=== PATIENT | female | born 1975 | race Caucasian/White ===

== ENCOUNTER 2025-04-28 16:58 | Outpatient (CLI) | payer OTHER, SELFPAY ==
[2025-04-28 17:16] LABS: Hematocrit 40.1 % (35.0-49.0); Hemoglobin 13.9 g/dL (12.0-15.0); Immature Granulocyte Percent A 0.2 % (0.0-0.0); Lymphocytes Absolute Auto 1.78 K/mm3 (1.10-4.50); Mean Corpuscular HGB Conc 34.7 g/dL (32-36); Mean Corpuscular Hemoglobin 32.7 pg (27.0-31.0); Mean Corpuscular Volume 94.4 fL (78.0-102.0); Nucleated Red Blood Cells Absolute Auto 0.00 K/mm3 (0.00-0.00); Nucleated Red Blood Cells Perc 0.0 % (0-0.0); Platelet Count Result 328 K/mm3 (150-420); Red Blood Count 4.25 M/mm3 (4.20-5.40); White Blood Count 6.1 K/mm3 (4.8-10.8)
--- NOTE | 2025-04-28 17:18 | ECG_ITS ---
Test Date: 2025-04-28 17:25:37 Measurements Intervals [place] Rate: 52 P: 47 MI: 176 QRS: 39 QRSD: 86 T: 35 QT: 411 QTc: 383 Interpretive Statements SINUS BRADYCARDIA CONSIDER RIGHT VENTRICULAR CONDUCTION DELAY BORDERLINE ST-T WAVE ABNORMALITY- ANTERIOR LEADS BORDERLINE ECG No previous ECG available for comparison Electronically Signed On 04-28-2025 19:48:38 WET SANDER by Apolinar Blas D.O.
--- OUTSIDE RECORDS SUMMARY | 2025-04-28 18:22 | XMS_ITS | Clinical Summary ---
Author Organization [facility] Address [address] [place] [address] Phone Care Team Providers Care Machine Cage Maker Name Role Phone Provider, Not On File Primary Care Provider Unav zeeable Ina Gale MD Unavailable Allergies Active Allergy Reactions Criticality Noted Date Comments Penicillin G Hives,Itching,Swelling 1974 Medications aspirin EC 81 MG Tablet Delayed Response Take 81 mg by mouth daily. 4 Active Biotin 5000 MCG Capsule Take 1 Capsule by mouth daily. 4 Active Calcium Citrate 250 MG Tablet Take 250 mg by mouth. 4 Active Cobalamin Combinations (B-12) 100-5000 MCG SL Tablet 1 Tablet by Sublingual route. 4 Active docusate sodium 100 MG Capsule Take 100 mg by mouth. 4 Active Loratadine 10 MG Capsule Take 10 mg by mouth daily. 4 Active Multiple Vitamins-Minerals (Bariatric Multivitamins/Iro n) Capsule Take 1 Capsule by mouth. Iron plus c 4 Active Ferrous Sulfate (IRON PO) Take by mouth. Activ e clopidogrel (PLAVIX) 75 MG Tablet Take 75 mg by mouth daily. 4 Active Cholecalciferol (VITAMIN D-3 PO) Take 125 mcg by mouth daily. Active Active Problems No known active problems Family History Medical History Relation Name Comments Diabetes Father Relation Name Status Comments Brother Alive Father Alive Mother Alive Social History Tobacco Use Types Packs/Day Years Used Date Smoking Tobacco: Former Cigarettes Smokeless Tobacco: Never Tobacco Cessation:Counseling Given: No Alcohol Use Standard Drinks/Week Comments Never 0 (1 standard drink = 0.6 oz pur e alcohol) Comments Unknown Sex and Gender Information Value Date Recorded Sex Assigned at Not on file Legal Sex Female 6:19 PM CDT Gender Identity Not on file Sexual Orientation Not on file Last Filed Vital Signs Vital Sign Reading Time Taken Comments Blood Pressure 124/78 10/28/2024 8:10 AM CDT Pulse 72 10/28/2024 8:10 AM CDT Temperature 36.8 C (98.2 F) 10/28/2024 8:10 AM CDT Respiratory Rate - - Oxygen Saturation 97% 10/28/2024 8:10 AM CDT Inhaled Oxygen Concentration - - Weight 92.5 kg (204 lb) 10/28/2024 8:10 AM CDT Height 154.9 cm (5' 1) 10/28/2024 8:10 AM CDT Body Mass Index 38.55 10/28/2024 8:10 AM CDT Plan of Treatment Upcoming Encounters Date Type Department Care Team (Late st Contact Info) Description 05/05/2025 8:00 AM DEPENDENCY PROGRAM DIRECTOR Office Visit [facility] [address] [place] [address] Tammy Mendoza, VISCOSITY INSPECTOR, [employer] [address] [place] [address] Health Maintenance Due Date Last Done Comments Hepatitis C Virus (HCV) Screening 1975 Mammogram 1974 TdaP Immunization 1974 Pap Smear 1995 Cervical Cancer Screening (CCS) 01/26/2004 HPV/Cotest 01/26/2004 Cologuard 2019 Colonoscopy 2019 Colorectal Cancer Screening 2019 Immunochemical Fecal Occult Blood 2019 Hepatitis B Immunization (3 of 3 - 19+ 3-dose series) 11/03/2023 09/08/2023, 02/25/2022 Pneumococcal Immunization (50+ years) (1 of 1 - PCV) 01/26/2024 Zoster Immunization (1 of 2) 01/26/2024 Influenza Immunization (#1) 2025 02/03/2023 SARS-COV-2 Immunization (5 - 2024- season) 2025 03/23/2023, 03/20/2021, 08/07/2020, Additional history exists Respiratory Syncytial Virus (RSV) Immunization (Adult) (1 - 1-dose 75+ series) 2049 Human Papillomavirus (HPV) Immunization (No Doses Required) Completed Meningococcal Immunization (ACWY) Aged Out No longer eligible based on patient's age to complete this topic Rotavirus Immunization Aged Out No lo nger eligible based on patient's age to complete this topic Insurance [employer] Care Teams Machine Cage Maker Relationship Specialty Start Date End Date Provider, Not On File [place] PCP - General 11/27/23 Ina Gale MD [address] [place] [address] [address] [place] [address] Consulting Physician Oncology 08/16/24
--- OUTSIDE RECORDS SUMMARY | 2025-04-28 18:22 | XMS_ITS | Data Portability ---
Author Organization [facility], [address] [facility] ([place]) Address [address]th [place] [address] Care Team Providers Care Sweater Operator Name Role Phone YOBANY GARCÍA Primary Care Provider [phone] Assessment Encounter Date Assessment Date Assessment LastModified by Organization Details LastModified Time 07/15/2024 07/15/2024 REASONS FOR FOLLOW-UP: 1. Pituitary macroadenoma. 2. History of hyperprolactinemia. HPI: Ms. Vaishali Beal is a delightful female returning to endocrine clinic. She had transsphenoidal resection of pituitary macroadenoma November 23, 2017. This was performed for treatment of hyperprolactinemia. The patient had uterine ablation performed in June 2022. She no longer has any menstrual bleeding. Denies problems with visual gaona. MRI of the sella was repeated December 09, 2021. That study revealed stable postoperative changes with no evidence of recurrence. She denies problems with peripheral visual gaona. She feels well physically. Ms. Beal has had normal biochemical pituitary function. She feels well physically. 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 She was found to have PFO and had PFO closure performed March 12, 2024. She has no residual effects from her TIA/CVA. BMI is greater than 35. This has improved. Body weight is 5 pounds less as compared to July 2023. The patient has history of Patrice-en-Y gastric bypass. She had an enjoyable trip to see [facility] in [place] in June 2024. PHYSICAL EXAMINATION: CONST: No acute distress. Appears well. Vitals as documented. Appears much younger than stated age. EYES: PERRL. EOMI. No scleral icterus or injection. No exophthalmos or lid lag. Visual gaona full to confrontation testing. ENT: External inspection of the ears and nose are without scars, lesions, or masses. Oropharynx without lesions. NECK: No thyromegaly, thyroid bruits, or carotid bruits. No cervical or supraclavicular lymphadenopathy. RESP: Lung gaona clear to auscultation bilaterally with unlabored respiratory effort. CV: Normal S1, S2. No murmurs, rubs, or gallops appreciated. Regular rate and rhythm. GI: Abdomen: soft, nontender. Normoactive bowel sounds. Unable to assess for organomegaly given body habitus. MSK: No lower extremity edema. No clubbing or cyanosis. Normocephalic. SKIN: No rashes or lesions. PSYCH: Alert and oriented X 3. Appropriate mood and affect. NEURO: No focal neurologic deficits. Gait without abnormalities. No hand tremors. Reviewed recent diagnostic tests, lab work, and imaging. These were reviewed with the patient. ASSESSMENT: 1. 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 2. History of prolactinemia secondary to #1. 3. BMI greater than 35. 4. History of Patrice-en-Y gastric bypass surgery. 5. 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 RECOMMENDATIONS: 1. Potential benefits, risks, and adverse effects of the patient's endocrine medications were reviewed at the time of the appointment. We also reviewed appropriate timing of the patient's endocrine medications with respect to meals and other medications. The patient verbalized/indicate d understanding of all education presented. 2. Instructed on plan of care. Discussed signs and symptoms to report. Patient/caregiver aware and agreeable with plan. Return to clinic if signs/symptoms do not improve, worsen, or if new symptoms develop. The importance of achieving/maintaini ng a normal BMI was discussed. 3. Diagnostic studies as outlined in this note. Further recommendations will be based on these results as well as the patient's clinical course. 4. Return to endocrinology clinic in 1 year. 5. Ms. Beal is clinically eupituitary. 6. Fasting laboratory studies will be performed as outlined in this note. We reviewed symptoms of pituitary dysfunction today. 7. We will obtain a copy of the patient's MRI she had performed at [facility] in October 2023. 8. I asked the patient to report any symptoms of pituitary dysfunction to our office. We again reviewed those symptoms today in detail. 9. We discussed stopping biotin for 7 days prior to performing any lab studies. She verbalized understanding of all recommendations discussed at her appointment today. [email or web address] Not available 07/15/2024 17:58:22 Plan of Treatment Reminders Order Date Submit Date Provider Last Modified By Organization Details Last Modified Time Details Appointments None recorded . Lab T4, free, serum 025 07/16/19 25 [facility], [address] [place] [address], [id number], 5 08:14:08 TSH, ultra-se nsitive, serum 025 07/16/19 25 [facility], [address] [place] [address], [id number], 5 08:14:08 FSH (follicl e-stimul ating hormone) , serum 025 07/16/19 25 [facility], [address] [place] [address], [id number], 5 08:14:08 cortisol , serum or plasma 025 07/16/19 25 [facility], [address] [place] [address], [id number], 5 08:14:08 acth, plasma 025 07/16/19 25 [facility], [address] [place] [address], [address], 5 08:14:08 prolacti n, serum 025 07/16/19 25 [facility], [address] [place] [address], [address], 08:14:08 igf-1 (insulin -like growth factor), serum 025 07/16/19 [facility], [address] [place] [address], [id number], 08:14:08 CMP, serum or plasma 025 07/16/19 [facility], [address] [place] [address], [address], 08:14:08 Referral None recorded . Procedures None recorded . Surgeries None recorded . Imaging None recorded . Medication Orders None recorded . Patient TargetsNo targets recorded. Patient InstructionsNo instructions recorded. Reason for Referral None Reported. Results Created Date Observation Date Name Description Value Unit Range Abnormal Flag Note LastModifiedBy Organization Detail LastModifiedTime 11/18/1907/31/2017 imagi ng/di agnos tic resul t No observ ation record ed. [email or web address] Not Available 0 11/17/2024 06:54:12 11/18/1908/31/2018 imagi ng/di agnos tic resul t No observ ation record ed. [email or web address] Not Available 0 11/17/2024 06:54:21 11/18/19 25 11/09/2017 imagi ng/di agnos tic resul t No observ ation record ed. [email or web address] Not Available 0 11/17/2024 06:54:27 11/18/19 25 11/09/2017 imagi ng/di agnos tic resul t No observ ation record ed. [email or web address] Not Available 0 11/17/2024 06:54:28 11/18/19 25 11/09/2017 imagi ng/di agnos tic resul t No observ ation record ed. [email or web address] Not Available 0 11/17/2024 06:54:28 11/18/19 25 11/23/2017 imagi ng/di agnos tic resul t No observ ation record ed. [email or web address] Not Available 0 11/17/2024 06:54:33 07/06/12/03/2018 imagi ng/di agnos tic resul t No observ ation record ed. [email or web address] Not Available 0 11/17/2024 06:54:34 11/18/19 25 01/29/2020 imagi ng/di agnos tic resul t No observ ation record ed. [email or web address] Not Available 0 11/17/2024 06:54:41 Result Notes None recorded. Problems Name Problem SNOMED Code Status Onset Date Resolution Date Notes Provider Name and Address Organization Details Recorded Time Pituitar y macroade noma 688272737 Active 2024 dx on MRI on eval amenorrh ea: nonfunct ioning macroade noma (prolact inoma) with a pituitar y stock affect. Transsph enoidal resectio n of pituitar y macroade noma November 23, 2017. Kaylene Judge APRN, INTELLIGENCE INTERN [address], [place], [address], [facility] 5 10:58:43 Hyperpro lactinem ia 707229527 Active 2024 see Pituitar y Macroade noma. Kaylene Judge APRN, INTELLIGENCE INTERN [address] , [place], [address], [facility] 5 11:02:59 Angular cheiliti s 346220885 Completed 202407/27/2024 03/17/23 Tx Ketocona zole Kaylene Judge APRN, INTELLIGENCE INTERN [address] , [place], [address], [facility] 5 10:51:33 Rupture of rotator cuff of shoulder 066891146 Completed 202407/27/2024 F/B Dr. Katerina woods; surgical repair done . Kaylene Judge APRN, INTELLIGENCE INTERN [address] , [place], [address], [facility] 5 10:52:09 Herpes labialis 1747810 Active 2024 HSV type lesions, recurrin g in inner nose. Tx valacycl ovir prn. Kaylene Judge APRN, INTELLIGENCE INTERN [address], [place], [address], [facility] 5 10:52:38 Kidney stone 03439001 Completed 202407/27/2024 Right extracor poreal shockwav e lithotri psy 01/2012. Kaylene Judge APRN, INTELLIGENCE INTERN [address], [place], [address], [facility] 5 10:53:02 History of nutritio nal deficien cy 21965282485 104 Completed 202407/27/2024 Vit D nmL 08/2017. Tx regular supplmnt p bariatri c surgery. Kaylene Judge APRN, INTELLIGENCE INTERN [address], [facility] [place], [address], [facility] 5 10:53:24 Intestin al malabsor ption 750555039 Active 2024 iatrogen ic (post bariatri c surgery) . Kaylene Judge APRN, INTELLIGENCE INTERN [address] , [facility] [place], [address], [facility] 5 10:53:48 Iron deficien cy anemia 15304900 Active 2024 Tx regular supplmnt p bariatri c surgery. Kaylene Judge APRN, INTELLIGENCE INTERN [address] , [facility] [place], [address], [facility] 5 10:54:10 Right lateral elbow tendinop athy 07539760351 9107 Completed 202407/27/2024 s/p injxn by Ortho . Kaylene Judge APRN, INTELLIGENCE INTERN [address], [place], [address], [facility] 5 10:54:35 Cancer cervix screenin g status 928422340 Active 2024 nmL cytology w/ HPV Neg 11/2018. Repeat due 5yrs (mid 2023). Kaylene Judge APRN, INTELLIGENCE INTERN [address], [facility] [place], [address], [facility] 5 10:56:49 History of bariatri c surgical procedur e 128339382 Active 2024 Patrice-en- Y gastric bypass 09/2011. Kaylene Judge APRN, INTELLIGENCE INTERN [address] , [place], [address], [facility] 5 10:59:07 Screenin g mammogra phy Active 2024 nmL HAH Kaylene Judge APRN, INTELLIGENCE INTERN [address], [facility] [place], [address], [facility] 5 10:59:33 Abnormal uterine bleeding 30630848332 100 Active 2024 f/b gyne. S/p EMB (neg for malignan cy). Kaylene Judge APRN, INTELLIGENCE INTERN [address] , [facility] [place], [address], [facility] 5 11:01:55 Mixed anxiety and depressi ve disorder 238171191 Completed 202407/27/2024 Kaylene Judge APRN, INTELLIGENCE INTERN [address], [facility] [place], [address], [facility] 5 11:02:27 Cerebral artery occlusio n 15526597 Active 2024 Ms. Beal sustaine d an acute right parietal infarct October 14, 2023. She was found to have PFO and had PFO closure performe d March 12, 2024. She has no residual effects from her TIA/CVA. Kaylene Judge APRN, INTELLIGENCE INTERN [address] , [facility] [place], [address], [facility] 5 11:08:15 Problem Notes Documentation Provider Name and Address Organization Details Recorded Time Endocrinology Consult Note : [place] [address] [facility] [address]XJKYY, Shawnna L (id #[id number], : 1975) Date: 07/17/2024RE: Vaishali Beal, : 1975, PT ID #[id number] García MD, Vaishali Beal was seen in our office today 07/15/2024, and a copy of that evaluation is enclosed. Thank you for allowing us to participate in the care of your patient. Please contact us with any questions. Sincerely, Electronically Signed by: EDUARDO MUÑOZ M.D. Encounter Reason/Date 1yr f/u pituitary macroadenoma 07/15/2024 - 03:30PM - [facility] ([place]) Assessment/PlanREASONS FOR FOLLOW-UP:1. Pituitary macroadenoma.2. History of hyperprolactinemia. HPI:Ms. Vaishali Beal is a delightful female returning to endocrine clinic. She had transsphenoidal resection of pituitary macroadenoma November 23, 2017. This was performed for treatment of hyperprolactinemia. The patient had uterine ablation performed in June 2022. She no longer has any menstrual bleeding. Denies problems with visual gaona. MRI of the sella was repeated December 09, 2021. That study revealed stable postoperative changes with no evidence of recurrence. She denies problems with peripheral visual gaona. She feels well physically. Ms. Beal has had normal biochemical pituitary function. She feels well physically. 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 She was found to have PFO and had PFO closure performed March 12, 2024. She has no residual effects from her TIA/CVA. BMI is greater than 35. This has improved. Body weight is 5 pounds less as compared to July 2023. The patient has history of Patrice-en-Y gastric bypass. She had an enjoyable trip to see [facility] in [place] in June 2024. PHYSICAL EXAMINATION:CONST: No acute distress. Appears well. Vitals as documented. Appears much younger than stated age.EYES: PERRL. EOMI. No scleral icterus or injection. No exophthalmos or lid lag. Visual gaona full to confrontation testing.ENT: External inspection of the ears and nose are without scars, lesions, or masses. Oropharynx without lesions.NECK: No thyromegaly, thyroid bruits, or carotid bruits. No cervical or supraclavicular lymphadenopathy.RESP: Lung gaona clear to auscultation bilaterally with unlabored respiratory effort.CV: Normal S1, S2. No murmurs, rubs, or gallops appreciated. Regular rate and rhythm.GI: Abdomen: soft, nontender. Normoactive bowel sounds. Unable to assess for organomegaly given body habitus.MSK: No lower extremity edema. No clubbing or cyanosis. Normocephalic.SKIN: No rashes or lesions.PSYCH: Alert and oriented X 3. Appropriate mood and affect.NEURO: No focal neurologic deficits. Gait without abnormalities. No hand tremors. Reviewed recent diagnostic tests, lab work, and imaging. These were reviewed with the patient. ASSESSMENT:1. 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 History of prolactinemia secondary to #1.3. BMI greater than 35.4. History of Patrice-en-Y gastric bypass surgery.5. 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 RECOMMENDATIONS:1. Potential benefits, risks, and adverse effects of the patient's endocrine medications were reviewed at the time of the appointment. We also reviewed appropriate timing of the patient's endocrine medications with respect to meals and other medications. The patient verbalized/indicated understanding of all education presented. 2. Instructed on plan of care. Discussed signs and symptoms to report. Patient/caregiver aware and agreeable with plan. Return to clinic if signs/symptoms do not improve, worsen, or if new symptoms develop. The importance of achieving/maintaining a normal BMI was discussed. 3. Diagnostic studies as outlined in this note. Further recommendations will be based on these results as well as the patient's clinical course. 4. Return to endocrinology clinic in 1 year. 5. Ms. Beal is clinically eupituitary. 6. Fasting laboratory studies will be performed as outlined in this note. We reviewed symptoms of pituitary dysfunction today. 7. We will obtain a copy of the patient's MRI she had performed at [facility] in October 2023. 8. I asked the patient to report any symptoms of pituitary dysfunction to our office. We again reviewed those symptoms today in detail. 9. We discussed stopping biotin for 7 days prior to performing any lab studies. She verbalized understanding of all recommendations discussed at her appointment today.dpk 1.Pituitary rhdtncqzxlczY13.2: Benign neoplasm of pituitary gland FREE T4 ([place] ONLY) TSH ([place]) FSH ([place] [facility]) CORTISOL ([facility]) ADRENOCORTICOTROPIC HORMONE ([facility]) PROLACTIN ([place] [facility]) IGF-1; SOMATOMEDIN ([place] ONLY) CMP ([place] ONLY) 2.KenynnxagjeprhgtioV67.1: Hyperprolactinemia 3.BMI 37.0-37.9, kxpgkA64.37: Body mass index [BMI] 37.0-37.9, adult Return to Office Eduardo Muñoz M.D. for Established Patient 15.EST at [facility] [place]) on 07/17/2025 at 03:30 PM [facility] 02/27/2025 09:48:03 Procedures Surgical History Date Name Laterality Status Provider Name and Address Organization Details Recorded Time Breast reduction completed Kaylene Judge APRN, [facility] [address] [place] [address], [address], [facility] 07/27/2024 11:03:26 Patrice-en-Y gastrojejunostomy completed Kaylene Judge APRN, [facility] [address] [place] [address], [address], [facility] 07/27/2024 11:03:40 repair of musculotendinous cuff of shoulder completed Kaylene Judge APRN, [facility] [address] [place] [address], [address], [facility] 07/27/2024 11:03:58 tonsillectomy completed Kaylene Judge APRN, INTELLIGENCE INTERN [address] [place] [address], [address], [facility] 07/27/2024 11:04:11 lithotripsy completed Kaylene Judge APRN, [facility] [address] [place] [address], [address], [facility] 07/27/2024 11:04:18 procedure on pituitary gland completed Kaylene Judge, STOCK LETTERER, INTELLIGENCE INTERN [address] [place] [address], [address], [facility] 07/27/2024 11:06:28 Imaging Results None recorded. Procedure Notes None recorded. Medical Equipment None Reported. Allergies Allergen ID Allergen Name Allergen Category Reaction Reaction Severity Criticality Documentation Date Start Date Code Code System Note Provider Name and Address Organization Details Recorded Time 882243 Product containin g penicilli n (product) medicatio n hives Not available Not available 06/12/20232006 52355 8001 SNOMED React ion: Hives ; Not Available [facility] 4 21:34:32 Medications Name Sig Start Date Stop Date Status Note LastModified by Organization Details LastModified Time Lipitor 80 mg tablet Take 1 tablet every day by oral route. active Not Available Not Available No t Available Zyrtec 10 mg tablet Take 1 tablet every day by oral route. active Not Available Not Available No t Available Plavix 75 mg tablet Take 1 tablet every day by oral route. active Not Available Not Available No t Available aspirin 81 mg tablet,delay ed release Take 1 tablet every day by oral route. active Not Available Not Available No t Available calcium citrate 600mg tab PO TID active Not Available Not Available No t Available Stool Softener 100 mg tablet Take 2 tablets every day by oral route. active Not Available Not Available No t Available mecobalamin (vitamin B12) 1,000 mcg disintegrati ng tablet,subli ngual Place 1 tablet every week by sublingual route. active Not Available Not Available No t Available biotin 1,000 mcg chewable tablet Take 5 tablets every day by oral route. active Not Available Not Available No t Available Raleigh-Sequel s (iron-vit c) 200 mg (65 mg iron)-25 mg tablet,exten d rel 1 TAB PO DAILY active Not Available Not Available No t Available Bariatric Multivitamin s TAKE 1 TAB PO TID active Not Available Not Available No t Available Vitals Date Recorded Body height Body mass index (BMI) Body weight Heart rate Oxygen saturation Systolic And Diastolic Provider Name and Address Organization Details Last Updated DateTime 5 154.94 cm 37.8 kg/m2 82322.4 7 g 67 /min 96 % 116/72 mm[Hg] Yamini Macedo [facility] 16:44:10 Social History Question Answer Notes LastModified by Organizat ion Details LastModified Time Tobacco Smoking Status Former Smoker Yamini Macedo [facility], [facility] 07/15/2024 16:44:38 When Did You Quit Smoking? 2014 [email or web address] Information not available 07/15/2024 Sex: Unknown Functional Status None recorded. Mental Status None recorded. Family History Relationship Description Onset Age of this Age Resolved Age Notes LastModified by Organization Details LastModified Time Father Diabetes mellitus [email or web address] Not available 2024 11:05:46 Medical History No medical history recorded. Gynecological HistoryNo gynecological history recorded. Obstetrics History GPAL:G 0 P 0 0 0 0 Past Encounters Encounter ID Performer Location Encounter Start Date Encounter Closed Date Diagnosis/Indication Diagnosis SNOMED-CT Code Diagnosis ICD10 Code Diagnosis IMO Codes Diagnosis Note [id number] Eduardo Muñoz M.D. [facility] ([place]) [address] [place] [address] 07/15/2024 16:31:20 07/15/2024 17:05:41 Pituitary macroadenoma 467165844 D35.2 401068 Hyperprolactinemia 2004 E22.1 38973 Body mass index 30+ - obesity 009422329 Z68.37 53858779 Health Concerns Section Related Observation LastModified by Organization Detai ls LastModified Time None Recorded Concern Status LastModified by Organization Details LastModified Time None Recorded Advance Directives Directive None Recorded Payers Insurance Date Sequence Insurance Name Policy Number Policy Mckee Covered Member ID Mckee Member ID Guarantor Name 07/12/2024 1 [employer] [id number] Stephane Beal [id number] Vaishali Beal 07/12/2024 1 [employer] ([place]) [id number] Stephane Beal [id number] Vaishali Yeimi Valentevey 07/15/2024 [place] [facility] Vaishali L Rovey UNKNOWN Vaishali L Rovey 02/20/2025 1 [employer] ([facility] [place] [id number] Vaishali Beal [id number] Vaishali Beal OBGyn Episode No OBEpisode recorded.
--- OUTSIDE RECORDS SUMMARY | 2025-04-28 18:22 | XMS_ITS | Encounter Summary ---
Author Organization [facility] Address [facility] [place] [address] Care Team Providers Care Kiln Labourer Name Role Phone Swati Bailey NP Primary Care Provider [phone] Encounter Details Date Type Department Care Team (Late st Contact Info) Description 05/09/2024 Hospital Orders Only [facility] [address] [place], [place] [id number] Jaun Kitchen MD Three [facility]. [facility] [address] [place], [place] [address] Social History Tobacco Use Types Packs/Day Years Used Date Smoking Tobacco: Former Cigarettes Smokeless Tobacco: Never Comments:Quit 2003 Alcohol Use Standard Drinks/Week Comments Not Currently 0 (1 standard drink = 0.6 oz pur e alcohol) PHQ-2 Answer Date Recorded Patient Health Questionnaire-2 Score 0 11/21/2023 Comments No Sex and Gender Information Value Date Recorded Sex Assigned at Female 11/20/2023 7:57 AM CDT Legal Sex Female 10:03 PM CIVIL DESIGN TECHNICIAN Gender Identity Female 11/20/2023 7:57 AM CDT Sexual Orientation Straight 11/20/2023 7: 57 AM CDT Occupation Industry Job Start Date Job End Date [employer] Not on file Not on file Not on [place] documented as of this encounter Functional Status * Calculated C-SSRS Risk Score (Lifetime/Recent) Answer Date of Assessment Author Status No Risk Indicated 05/09/2024 6:56 AM CIVIL DESIGN TECHNICIAN Dipti Fox RN Active * [place] Suicide Severity Rating Scale (Screener/Recent Self-Report) Question Answer Date of Assessment Author Status 1. Wish to be (Past 1 Month) No 05/09/2024 6:56 AM Dipti Estevez RN Active 2. Non-Specific Active Suicidal Thoughts (Past 1 Month) No 05/09/2024 6:56 AM Dipti Estevez RN Active documented as of this encounter Plan of Treatment Upcoming Encounters Date Type Department Care Team (Late st Contact Info) Description 11/11/2025 9:30 AM CDT Office Visit [facility], [facility] [address] [place], [place] [id number] Alonso Machado MD [facility]. [facility] [address] [place] [address] documented as of this encounter Visit Diagnoses Not on filedocumented in this encounter Care Teams Kiln Labourer Relationship Specialty Start Date End Date Swati Bailey NP PCP - General Nurse Practitioner Family 10/19/23 documented as of this encounter
--- OUTSIDE RECORDS SUMMARY | 2025-04-28 18:22 | XMS_ITS | Encounter Summary ---
Author Organization [facility] Address [facility] [place] [address] Care Team Providers Care Heating And Refrigeration Inspector Name Role Phone Swati Bailey NP Primary Care Provider [phone] Encounter Details Date Type Department Care Team (Late st Contact Info) Description 12/20/2023 MyChart Message Enc [facility] - [facility] [address] [facility], [address] [place] [phone] Elvia Morris NP [address] [facility] [address] [place], [place] [id number] Sleep study Social History Tobacco Use Types Packs/Day Years Used Date Smoking Tobacco: Former Cigarettes Smokeless Tobacco: Never Alcohol Use Standard Drinks/Week Comments Not Currently 0 (1 standard drink = 0.6 oz pur e alcohol) PHQ-2 Answer Date Recorded Patient Health Questionnaire-2 Score 0 11/21/2023 Comments Unknown Sex and Gender Information Value Date Recorded Sex Assigned at Female 11/20/2023 7:57 AM CDT Legal Sex Female 10:03 PM ENGINE MAINTENANCE MECHANIC Gender Identity Female 11/20/2023 7:57 AM CDT Sexual Orientation Straight 11/20/2023 7: 57 AM CDT documented as of this encounter Plan of Treatment Upcoming Encounters Date Type Department Care Team (Late st Contact Info) Description 11/11/2025 9:30 AM CDT Office Visit [facility] THREE [facility], [place] [address] [place] [address] Alonso Machado MD Three [facility]. [facility] [address] [place] [address] documented as of this encounter Visit Diagnoses Not on filedocumented in this encounter Care Teams Heating And Refrigeration Inspector Relationship Specialty Start Date End Date Swati Bailey NP PCP - General Nurse Practitioner Family 10/19/23 documented as of this encounter
--- OUTSIDE RECORDS SUMMARY | 2025-04-28 18:22 | XMS_ITS | Clinical Summary ---
Author Organization [facility] Address [address] [place] [address] Care Team Providers Care Environmental Attorney Name Role Phone Swati Bailey NP Primary Care Provider [phone] Allergies Active Allergy Reactions Criticality Noted Date Comments Penicillin G Hives,Itching,Swelling 1975 Medications aspirin EC (ASPIRIN 81) 81 MG tablet Take 1 tablet (81 mg total) by mouth daily. Hold dos per surgeon per patient statement 4 Active Cobalamin Combinations (B-12) 100-[address] 1 tablet under the tongue once a week. Hold 7 days prior to surgery 4 Active Calcium Citrate 250 MG Tab Take 250 mg by mouth 3 (three) times daily. Hold 7 days prior to surgery 4 Active Multiple Vitamins-Minerals (BARIATRIC MULTIVITAMINS/IRO N) Cap Take 1 capsule by mouth 3 (three) times daily. Hold 7 days prior to surgery 4 Active Biotin 5000 MCG Cap Take 1 capsule by mouth daily. Hold 7 days prior to surgery 4 Active Loratadine 10 MG Cap Take 10 mg by mouth daily. 4 Active docusate sodium (COLACE) 100 MG capsule Take 1 capsule (100 mg total) by mouth 2 (two) times daily. 4 Active Ferrous Qnanbxlxa-F-Xxmrs Acid (IRON-C OR) Take 1 tablet by mouth daily. Hold 7 days prior to surgery Active Cholecalciferol (D3 5000) 125 MCG (5000 UT) Cap Hold 7 days prior to surgery 5 Active Methylcobalamin 1000 MCG SL Tab once a week. Hold 7 days prior to surgery Active vitamin D3, cholecalciferol, 125 mcg capsule Take 1 capsule (125 mcg total) by mouth daily. 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 I discussed risks and benefits of the procedure that include but are not limited to: Bleeding, infection, cerebrovascular accident and device embolization. I quoted a risk of 1% with device embolization. I did explain that if there was device embolization, there could be a need for cardiac surgery. Cryptogenic stroke Assessment & Plan (02/13/2024 6:51 AM CDT): Will discuss with neurology about utility of PFO closure. Encounters Date Type Department Care Team Description 04/07/2025 9:36 AM TRUCK SHOP MECHANIC Anesthesia Event [facility] [address] [place] [address] Adolfo Garcias MD 04/07/2025 9:30 AM TRUCK SHOP MECHANIC - 04/07/2025 10:49 AM TRUCK SHOP MECHANIC Surgery [facility] - [facility] [address] [place] [address] Jyoti Guzman MD HYSTEROSCOPY DILATATION & CURETTAGE 04/07/2025 7:37 AM TRUCK SHOP MECHANIC - 04/07/2025 11:40 AM TRUCK SHOP MECHANIC Hospital Encounter [facility] [address] [place] [address] Jyoti Guzman MD Discharge Disposition: Home or Self Care (Routine Discharge) 03/31/2025 Travel 02/19/2025 8:52 AM CDT - 02/19/2025 11:59 PM CDT Hospital Encounter [facility] [address] [place] [address] Antonino Dodd MD Discharge Disposition: Home or Self Care (Routine Discharge) 02/18/2025 5:17 PM CDT - 02/18/2025 6:55 PM CDT Emergency [facility] [address] [place] [address] Antonino Dodd MD Vaginal Bleeding (/) Discharge Disposition: Home or Self Care (Routine Discharge) 02/18/2025 Travel from Last 3 Months Immunizations Immunization Administration Dates Next Due Hepatitis B (Generic: Adult) 09/08/2023,02/26/20 Influenza Adult (Generic) 02/03/2023 Family History Medical History Relation Comments Drug Abuse Brother 2 Diabetes Father He is a borderli ne diabetic Relation Status Comments Brother 1 Alive Brother 2 Alive Father Alive Maternal Grandfather (Age 83) Maternal Grandmother (Age 24) Mother Alive Paternal Grandfather (Age 87) Paternal Grandmother (Age 93) Social History Tobacco Use Types Packs/Day Years Used Date Smoking Tobacco: Former Cigarettes Smokeless Tobacco: Never Comments:Quit 2003 Alcohol Use Standard Drinks/Week Comments Never 0 (1 standard drink = 0.6 oz pur e alcohol) PHQ-2 Answer Date Recorded Patient Health Questionnaire-2 Score 0 11/11/2024 Comments No Sex and Gender Information Value Date Recorded Sex Assigned at Female 11/20/2023 7:57 AM CDT Legal Sex Female 10:03 PM TRUCK SHOP MECHANIC Gender Identity Female 11/20/2023 7:57 AM CDT Sexual Orientation Straight 11/20/2023 7: 57 AM CDT 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 Not on file Not on [place] e Last Filed Vital Signs Vital Sign Reading Time Taken Comments Blood Pressure 128/82 04/07/2025 11:05 AM TRUCK SHOP MECHANIC Pulse 61 04/07/2025 11:10 AM TRUCK SHOP MECHANIC Temperature 36.1 C (97 F) 04/07/2025 10:32 AM TRUCK SHOP MECHANIC Respiratory Rate 18 04/07/2025 11:10 AM TRUCK SHOP MECHANIC Oxygen Saturation 93% 04/07/2025 11:10 AM TRUCK SHOP MECHANIC Inhaled Oxygen Concentration - - Weight 99 kg (218 lb 4.1 oz) 04/07/2025 8:11 AM TRUCK SHOP MECHANIC Height 155 cm (5' 1.02) 04/07/2025 8:11 AM TRUCK SHOP MECHANIC Body Mass Index 41.21 04/07/2025 8:11 AM TRUCK SHOP MECHANIC Plan of Treatment Upcoming Encounters Date Type Department Care Team (Late st Contact Info) Description 11/11/2025 9:30 AM CDT Office Visit [facility], [address], [place] [id number] Alonso Machado MD [facility]. [address] [place] [address] Health Maintenance Due Date Last Done Comments Cervical Cancer Screening Pap Smear (Age 30 to 64) Every 3 Years 1974 Colorectal Cancer Screening Colonoscopy (10 Years) 1974 Annual Physical 1977 Hepatitis C 01/26/1992 DTaP, Tdap and Td Vaccines (1 - Tdap) 1993 Cervical Cancer Screening Pap with HPV Testing (Age 30 to 64) Every 5 Years 01/26/2004 Cervical Cancer Screening with HPV 01/26/2004 Mammogram Screening 2014 Hepatitis B Vaccines (3 of 3 - 19+ 3-dose series) 11/03/2023 09/08/2023, 02/25/2022 Pneumococcal Vaccine: 50+ Years (1 of 1 - PCV) 01/26/2024 Zoster Vaccines (1 of 2) 01/26/2024 COVID-19 Vaccine (5 - season) 2025 03/23/2023, 03/20/2021, 08/07/2020, Additional history exists Influenza Adult (#1) 2025 02/03/2023 PHQ-2 (Physician Osgood) Completed 11/11/2024 Hepatitis A Vaccines Aged Out No long er eligible based on patient's age to complete this topic Meningococcal B Vaccine Aged Out No l onger eligible based on patient's age to complete this topic Meningococcal Vaccine Aged Out No milagro pritesh eligible based on patient's age to complete this topic RSV Immunizations Under 20 Months Aged Out No longer eligible based on patient's age to complete this topic Medical Devices Implanted Type Area Air Sampling And Monitoring Device Identifier Shelf Expiration Date Model / Serial / Lot [facility]-03/12 Implanted:02/13 by Marty Griffin MD (Quantity not on file) [facility] [id number] 10/12/2026 / / [id number] Explanted Type Area Air Sampling And Monitoring Device Identifier Shelf Expiration Date Model / Serial / Lot Implantable Loop [id number] Ii-05/09/2024 Implanted:Qty: 1 on 05/09/2024 by Jaun Kitchen MD Explanted:Qty: 1 on 12/13/2024 by Jaun Kitchen MD Implantable Loop Recorder [employer] CARDIAC RHYTHM AND HEART FAILURE - DIV M 08/26/2025 [id number] / [id number] / Procedures Procedure Name Priority Date/Time Associated Diagnosis Comments HYSTEROSCOPY DILATATION & CURETTAGE 04/07/2025 9:21 AM TRUCK SHOP MECHANIC ABNORMAL UTERINE BLEEDING POCT URINE (BACK OFFICE) Routine 04/07/2025 PATHOLOGY Routine 04/07/2025 12:00 AM TRUCK SHOP MECHANIC US PELVIC NON OB COMP TA+TV Routine 02/19/2025 9:59 AM CDT Dysfunctional uterine bleeding HC HCG QN STAT 02/18/2025 6:06 PM CDT HC PROTHROMBIN TIME (PT) STAT 02/18/2025 6:06 PM CDT HC COMPREHENSIVE METABOL PANEL STAT 02/18/2025 6:06 PM CDT HC CBC AUTO W/AUTO DIFF STAT 02/18/2025 6:06 PM CDT from Last 3 Months Results * POCT urine (back office) (04/07/2025) URINE HCG TEST NEGATIVE NEGATIVE [facility] Internal Control: VALID VALID [facility] URINE URINE SPECIMEN OBTAINED BY CLEAN CATCH PROCEDURE / Unknown 04/07/2025 Adolfo Garcias MD POINT OF CARE TEST ORDERABLES Final Result [facility] [address] [place] [address], [id number] * Pathology (04/07/2025 12:00 AM TRUCK SHOP MECHANIC) PATHOLOGY [facility] Department of Laboratory Medicine [address] [place] [address] , extension [phone] Pathology Report Surgical Pathology Report Name: BONY GRIFFIN Specimen #: [id number] Age: 9 1975 (Age: 50) Location: [facility] Sex: F Procedure Date: 04/07/2025 Hospital #: [id number] Date Received: 04/07/2025 Date Reported: 04/08/2025 Provider: JYOTI PARSON MD Source: A: Endometrium, biopsy B: Endometrium, polyp C: Endometrium, curettage Clinical History: Abnormal uterine bleeding. FINAL DIAGNOSIS: A. Endometrial lesion, biopsy: - Inactive appearing endometrium with patchy tubal metaplasia and glandular and stromal breakdown. - No hyperplasia or malignancy is identified. B. Endometrium, polypectomy: - Fragments of inactive appearing endometrium. - Definite histologic features of polyp are not identified. - No hyperplasia or malignancy is identified. C. Endometrium, curettage: - Disordered weakly proliferative endometrium with patchy glandular and stromal breakdown. - No hyperplasia or malignancy is identified. - Few fragments of benign cervical tissue. Gross Description: A. Received in formalin, labeled with a patient label and as endometrial lesion, are friable chauhan-red tissues that aggregate 0.3 x 0.1 x 0.1 cm. The specimen is entirely submitted in cassette A1. B. Received in formalin, labeled with a patient label and as endometrial polyp, are 2 rubbery pink-white soft tissue fragments that measure 0.1 and 0.2 cm the specimen is entirely submitted in cassette B1 C. Received in formalin, labeled with a patient label and as endometrial curettings, are multiple friable, chauhan-red to hemorrhagic tissue fragments admixed with blood and tinged mucus. The specimen aggregates 1.5 x 1.5 x 0.7 cm. The specimen is entirely submitted in cassette C1. Gross examination (when applicable), interpretation, and sign out were performed at [facility], [address] [place] [address]. Electronically Signed Out YASMEEN VICENTE MD [facility] TISSUE ENDOMETRIAL STRUCTURE / Unknown 04/07/2025 10:09 AM TRUCK SHOP MECHANIC Tissue specimen (specimen) ENDOMETRIAL STRUCTURE / Unknown 04/07/2025 10:11 AM TRUCK SHOP MECHANIC Tissue specimen (specimen) ENDOMETRIAL STRUCTURE / Unknown 04/07/2025 10:12 AM TRUCK SHOP MECHANIC Jyoti Guzman MD PATHOLOGY/CYTOLOGY ORDERABLES Final Result Performing Organization Address City/State/[facility] Co de Phone Number [facility] [address] [place] [address], [phone] * US PELVIC NON OB COMP TA+TV (02/19/2025 9:59 AM CDT) Anatomical Region Laterality Modality Pelvis Ultrasound 02/21/2025 3:49 PM CDT Impressions 02/21/2025 3:53 PM CDT IMPRESSION: 1. Abnormal but nonspecific appearance of the endometrium. Gynecologic consultation is advised. 2. Multiple left ovarian cysts, likely physiologic. 3. Nonvisualization of the right ovary without adnexal mass. Ordered By: ANTONINO DODD Interpreted By: Yang Higgins MD, 02/21/2025 3:49 PM Narrative 02/21/2025 3:53 PM [address]T [address] [place] [address] Examination: Transabdominal and transvaginal pelvic ultrasound. Exam time: 0914 hours. Clinical history: Dysfunctional bleeding. Comparison: None. Technique: Grayscale and color Doppler images including spectral analysis. Endovaginal scanning was performed to better visualize the endometrium and the adnexa. Findings: The uterus measures 11.8 cm in length. No myometrial abnormality is identified. The endometrial stripe measures up to 19 mm with some heterogeneity in its echotexture, asymmetric thickness and fluid in the cavity. This is abnormal but nonspecific. Gynecologic consultation is advised. 2.1 cm nabothian cyst is noted. The left ovary is enlarged measuring 5.9 cm in greatest dimension. This is on the basis of multiple simple appearing cysts measuring up to 4.1 cm in greatest dimension, presumably physiologic. Flow to the left ovary is documented on color Doppler with normal appearing spectrum. The right ovary could not be visualized however, no adnexal mass is seen. There is no free fluid. Procedure Note Yang Higgins MD - 02/21/[address] [place] [address] Examination: Transabdominal and transvaginal pelvic ultrasound. Exam time: 0914 hours. Clinical history: Dysfunctional bleeding. Comparison: None. Technique: Grayscale and color Doppler images including spectral analysis.Endovaginal scanning was performed to better visualize the endometrium andthe adnexa. Findings: The uterus measures 11.8 cm in length. No myometrial abnormalityis identified. The endometrial stripe measures up to 19 mm with someheterogeneity in its echotexture, asymmetric thickness and fluid in thecavity. This is abnormal but nonspecific. Gynecologic consultation isadvised. 2.1 cm nabothian cyst is noted. The left ovary is enlargedmeasuring 5.9 cm in greatest dimension. This is on the basis of multiplesimple appearing cysts measuring up to 4.1 cm in greatest dimension,presumably physiologic. Flow to the left ovary is documented on colorDoppler with normal appearing spectrum. The right ovary could not bevisualized however, no adnexal mass is seen. There is no free fluid. IMPRESSION: 1. Abnormal but nonspecific appearance of the endometrium. Gynecologicconsultation is advised. 2. Multiple left ovarian cysts, likely physiologic. 3. Nonvisualization of the right ovary without adnexal mass. Ordered By: ANTONINO DODD Interpreted By: Yang Higgins MD, 02/21/2025 3:49 PM us Antonino Dodd MD ULTRASOUND Final Result * PROTIME/INR, VENOUS (02/18/2025 6:06 PM CDT) PROTIME 11.7 9.4 - 12.5 SEC 02/18/2025 6:21 PM CDT [facility] INR 1.0 0.8 - 1.0 02/18/2025 6:[address] PM [address] [facility] 02/18/2025 6:06 PM CDT us Antonino Dodd MD LABORATORY Final Result [facility] [address] [place] [address], * (ABNORMAL) COMPREHENSIVE METABOLIC PANEL (02/18/2025 6:06 PM CDT) SODIUM S/P/B 137 136 - 145 MMOL/L 02/18/2025 6:35 PM CD[address] [facility] POTASSIUM S/P/B 4.0 3.5 - 5.1 MMOL/L 02/18/2025 6:35 PM CDT [facility] CHLORIDE S/P/B 103 98 - 107 MMOL/L 02/18/2025 6:35 PM CDT [facility] CO2 28.0 21.0 - 32.0 MMOL/L 02/18/2025 6:35 PM CDT [facility] GLUCOSE 114(H) 70 - 99 MG/DL 02/18/2025 6:35 PM CDT [facility] Comment: FASTING GLUCOSE 100 TO 125 MG/DL IS CONSISTENT WITH IMPAIRED FASTING GLUCOSE. FASTING GLUCOSE >125 MG/DL IS CONSISTENT WITH DIABETES. RANDOM GLUCOSE >200 MG/DL WITH HYPERGLYCEMIC SYMPTOMS IS CONSISTENT WITH DIABETES. PER ADA GUIDELINES BUN 14 6 - 24 MG/DL 02/18/2025 6:35 PM CDT [facility] CREATININE S/P/B 0.74 0.55 - 1.02 MG/DL 02/18/2025 6:35 PM T [facility] CALCIUM S/P/B 9.3 8.4 - 10.5 MG/DL 02/18/2025 6:35 PM [facility] BILIRUBIN TOTAL S/P/B 0.9 0.2 - 1.0 MG/DL 02/18/2025 6:35 PM T [facility] Comment: THIS ASSAY IS NOT RECOMMENDED FOR PATIENTS UNDERGOING TREATMENT WITH ELTROMBOPAG DUE TO THE POTENTIAL FOR FALSELY ELEVATED RESULTS. ALKALINE PHOSPHATASE S/P/B 126(H) 41 - 108 U/L 02/18/2025 6:35 PM T [facility] AST 36 15 - 37 U/L 02/18/2025 6:35 PM [facility] ALT 42 14 - 59 U/L 02/18/2025 6:35 PM T [facility] TOTAL PROTEIN S/P/B 7.1 6.4 - 8.2 G/DL 02/18/2025 6:35 PM [facility] ALBUMIN S/P/B 3.7 3.4 - 5.0 G/DL 02/18/2025 6:35 PM [facility] ANION GAP 6.0 5.0 - 15.0 MMOL/L 02/18/2025 6:35 PM [facility] OSMOLALITY (CALC) 285 MOSM/KG 025 6:35 PM [facility] Comment:REFERENCE RANGE NOT ESTABLISHED GFR ESTIMATE >90 >89 ML/MIN/1. 73 M2 02/18/2025 6:35 PM T [facility] GFR NOTES GFR REFERENCE S: 02/18/2025 6:35 PM [facility] Comment: THE ESTIMATED GFR IS CALCULATED USING THE 2020 CKD-EPI EQUATION. THE FOLLOWING CATEGORIES FOR GRADING RENAL FUNCTION ARE RECOMMENDED BY THE INTERNATIONAL SOCIETY OF NEPHROLOGY (KDIGO 2012 CLINICAL PRACTICE GUIDELINE). G1,NORMAL OR HIGH: >89 ml/min/1.73 m2 G2,MILDLY DECREASED: 60-89 ml/min/1.73 m2 G3A,MILDLY TO MODERATELY DECREASED: 45-59 ml/min/1.73 m2 G3B,MODERATELY TO SEVERELY DECREASED: 30-44 ml/min/1.73 m2 G4,SEVERELY DECREASED: 15-29 ml/min/1.73 m2 G5,KIDNEY FAILURE: <15 ml/min/1.73 m2 02/18/2025 6:06 PM CDT us Antonino Dodd MD LABORATORY Final Result Performing Organization Address City/[facility]/ZIP Co de Phone Number [facility] [address] [place] [address], [place] [phone] * HCG QUANT (SERUM)-CHORIONIC GONADOTROPIN (02/18/2025 6:06 PM CDT) HCG QUANTITATIVE <1 0.0 - 6.0 MIU/ML 02/18/2025 6:54 PM CDT [facility] Comment:NON- FEMALE 0-6 02/18/2025 6:06 PM CDT us Antonino Dodd MD LABORATORY Final Result Performing Organization Address City/[facility]/ZIP Co de Phone Number [facility] [address] [place] [address], [place] [phone] * (ABNORMAL) CBC W/DIFF AUTOMATED (02/18/2025 6:06 PM CDT) WBC 8.83 4.00 - 10.80 x10'3/uL 02/18/2025 6:19 PM CD[address] [facility] RBC 4.02(L) 4.10 - 5.40 x10'6/uL 02/18/2025 6:19 PM CD[address] [facility] HGB 13.4 12.0 - 16.0 G/DL 02/18/2025 6:19 PM CD[address] [facility] HCT 37.7 36.0 - 47.0 % 02/18/2025 6:19 PM CD[address] [facility] MCV 93.8 78.0 - 100.0 FL 02/18/2025 6:19 PM CD[address] [facility] MCH 33.3(H) 27.0 - 31.0 PG 02/18/2025 6:19 PM CD[address] [facility] MCHC 35.5 33.0 - 36.0 G/DL 02/18/2025 6:19 PM CD[address] [facility] RDW 13.0 11.5 - 14.5 % 02/18/2025 6:19 PM CDT [facility] PLT 352(H) 150 - 350 x10'3/uL 02/18/2025 6:19 PM CD[address] [facility] MPV 10.3 7.4 - 10.4 FL 02/18/2025 6:19 PM [address] [facility] CBC COMMENT NORMAL REFERENCE RANGE NOT ESTABLISHED FOR THE PROPORTIONAL LEUKOCYTE DIFFERENTIAL. 02/18/2025 6:[address] [facility] NEUTROPHILS % 80.7 % 02/18/2025 6:19 PM [address] [facility] LYMPHOCYTES % 12.3 % 02/18/2025 6:19 PM [address] [facility] MONOCYTES % 6.5 % 02/18/2025 6:19 PM CD[address] [facility] EOSINOPHILS % 0.1 % 02/18/2025 6:19 PM CD[address] [facility] BASOPHILS % 0.2 % 02/18/2025 6:19 PM CD[address] [facility] IMMATURE GRANS % 0.2 % 02/19/20 6:[address] [facility] NRBC % 0.0 % 02/18/2025 6:19 PM [address] [facility] ABS. NEUTROPHILS 7.12 1.60 - 8.30 x10'3/uL 02/18/2025 6:[address] [facility] ABS. LYMPHOCYTES 1.09 0.80 - 4.70 x10'3/uL 02/18/2025 6:19 PM [address] [facility] ABS. MONOCYTES 0.57 0.00 - 1.50 x10'3/uL 02/18/2025 6:19 PM [address] [facility] ABS. EOSINOPHILS 0.01 0.00 - 0.40 x10'3/uL 02/18/2025 6:19 PM [address] [facility] ABS. BASOPHILS 0.02 0.00 - 0.20 x10'3/uL 02/18/2025 6:[address] [facility] ABS. IMMATURE GRANULOCYTES 0.02 0.00 - 0.03 x10'3/uL 02/18/2025 6:[address] [facility] ABS. NUCLEATED RBC'S 0.00 0.00 - 0.01 x10'3/uL 02/18/2025 6:[address] [facility] 02/18/2025 6:06 PM CDT us Antoninodru Dodd MD LABORATORY Final Result [facility] [address] [place] [phone], from Last 3 Months Insurance [employer] Advance Directives * Full Code (Latest Code Status on File) Date Activated Date Inactivated Comments 03/12/2024 1:03 PM 03/12/2024 5:49 PM Care Teams Environmental Attorney Relationship Specialty Start Date End Date Swati Bailey NP PCP - General Nurse Practitioner Family 10/19/23
--- OUTSIDE RECORDS SUMMARY | 2025-04-28 18:22 | XMS_ITS | Encounter Summary ---
Author Organization [facility] Address [facility] [place] [address] Care Team Providers Care International Nurse Name Role Phone Swati Bailey NP Primary Care Provider [phone] Encounter Details Date Type Department Care Team (Late st Contact Info) Description 12/25/2023 [employer] Message Enc [facility] Medical Group Multispecialty Care - [facility] [address], [address] [place] [address] [employer], [facility] Provider Sleep study Social History Tobacco Use Types [...] AM CDT Legal Sex Female 10: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 [address] [place] [address] documented as of this encounter Visit Diagnoses Not on filedocumented in this encounter Care Teams International Nurse Relationship Specialty Start Date End Date Swati Bailey NP PCP - General Nurse Practitioner Family 10/19/23 documented as of this encounter
== END 2025-04-28 16:59 | disposition home or self-care (01) ==
PROVIDERS: Visit Provider Obstetrics & Gynecology
DX: Z01.818 Encounter for other preprocedural examination (principal); E78.5 Hyperlipidemia, unspecified; R00.1 Bradycardia, unspecified
CPT/HCPCS: 36415; 85025; 93005

== ENCOUNTER 2025-04-29 01:50 | Day surgery (SDC) | payer OTHER, SELFPAY ==
--- NOTE | 2025-04-23 07:14 | P.HP_ITS ---
H&P: HPI History of Present Illness Date/Time: 04/23/25 07:14 Chief Complaint: Pelvic pain and excessive bleeding refractory to ablation Narrative: Is a 50-year-old female admitted for robotic hysterectomy bilateral salpingo- oophorectomy secondary to failed ablation with continued dyspareunia pelvic pain and irregular bleeding. Risks and benefits reviewed including but not exclusive of , aspiration pneumonia, bleeding, transfusion, perforation injury to bowel, bladder, ureters, or other internal organs with need for open laparotomy. She received the ACOG handout entitled hysterectomy as well as de [place]a handout. She had all questions answered. She asked to proceed. Exam Const: General: cooperative, healthy appearing and comfortable Nutritional Appearance: average body habitus Orientation/consciousness: oriented to person, oriented to place and oriented to time HENMT: Head: normal to inspection Resp: Effort & Inspection: normal respiratory effort Cardio: Rate: regular rate Rhythm: regular rhythm Heart sounds: S1 nor mal heart sound present and S2 normal heart sound present GI: Inspection: normal to inspection : External Female Exam: normal external appearance Speculum Exam - Vagina: normal appearance of the vagina Speculum Exam - Cervix: normal audrey earance of the cervix Bimanual exam- vagina & uterus: enlarged and Uterine tenderness Bimanual Exam- Adnexa, other: normal adnexae Assessment and Plan Assessment and plan (1) Excessive bleeding: Code(s): R58 - Hemorrhage, not elsewhere classified Status: Acute (2) Pelvic pain: Code(s): R10.20 - Pelvic and perineal pain unspecified side Status: Acute (3) Dyspareunia: Status: Acute Plan Proceed with robotic total vaginal hysterectomy bilateral salpingo-oophorectomy
[2025-04-25 10:34] VITALS: BMI 41.1
--- NOTE | 2025-04-25 11:21 | PC.NURSE ---
[facility] has started construction of its new state of the art ER which will open Spring 2026. With this, we anticipate parking may be a challenge for some our surgical patients and families. Parking spaces are limited but are available for all Surgical, obstetrics, and ER patients sharing this lot. If you arrive and find you are having a hard time finding a parking space, please note that we understand the challenges, please drive around the hospital and park near Hospital Entrance 1. When you enter this entrance, you can ask a volunteer to direct or take you back to the surgical waiting area to check in. We appreciate everyone?s understanding of these expected challenges while we build for your future. Report to the Outpatient Waiting Room, entrance under the green pavilion located off [address], at 1100 on 04-29-25. Planned Procedure Time: 1300.? Time changes happen often and if your time is changed the preop area will call you the afternoon before. - You and your visitor will be asked to self-screen and do not enter if you have any COVID symptoms. Please call surgeon if you need to reschedule. - A mask is optional within the hospital at this time. Patients may have clear liquids (water, carbonated beverages, clear teas, apple juice) until 3 hours prior to surgery with a maximum of 20 ounces. (1000) - No food from midnight until time of surgery and no smoking, or chewing tobacco (or any form of nicotine). No chewing gum, candy or mints. - Infants may have breast milk until 4 hours before surgery, formula 6 hours prior to surgery. - Children will be allowed to drink immediately following surgery.? If applicable, please bring a bottle or sippy cup to assist with drinking. Juice, water, soda, and popsicles are readily available.? For infants on formula, please bring formula the day of surgery.? Pacifiers are allowed. Take only the following medications with a SIP of water on the morning of surgery: None DO NOT STOP ANY OF YOUR OTHER PRESCRIPTION MEDICATIONS PRIOR TO SURGERY EXCEPT THE FOLLOWING Hold all vitamins and supplements for 3 days per anesthesiologist. (04-26-25) Medications to discontinue per physician: aspirin, ibuprofen Date to take last dose: Per Dr. Swathi Nolasco Please no make-up, nail south korean, hairspray, perfume, deodorant, or body powder the day of surgery.? No jewelry (including any body piercings) or valuables the day of surgery, leave them at home.? Please take a shower or bath the night before, or the morning of, surgery with an antibacterial soap.? Wear comfortable, loose fitting clothing.? Children are encouraged to wear pajamas. - Jewelry must be removed prior to entering the operating room.? Rings and piercings that are not removed may be cut off. - The hospital will not accept responsibility for valuables.? - Please leave all valuables, including medications, at home the day of surgery. If you are going home after surgery, a licensed dump truck driver must drive you home.? - NO public transportation without another adult if you receive anesthesia. - We recommend that an adult stay with you for 24 hours following discharge. - We also recommend that you do not drive, make important decision, drink alcoholic beverages, or take any drugs that were not prescribed by your health care provider for at least 24 hours after your discharge time. For Pediatric surgeries, we recommend two adults accompany the child home. Follow any additional instructions given to you from your surgeon. Telephone instructions given to Vaishali Beal and asked if any additional questions and then verbalized understanding. Patient advised to call surgeon office or pre surgery nurse liaison [phone] if any additional questions.
[2025-04-29] VITALS (9 sets, daily range): BP systolic 119–137; BP diastolic 69–83; PULSE 60–81; RESP 14–18; TEMP 36.1–37; O2SAT 95–100; BMI 39.7
--- NOTE | 2025-04-29 00:02 | WPDHPUPDATE1 ---
History and Physical Update Update Date/Time: 04/29/25 00:02 History and Physical has been reviewed, including an updated exam of the patient. There are NO changes in the patient's condition. Risks, benefits, and alternatives have been discussed and questions answered. Patient agrees to proceed with procedure.
--- OUTSIDE RECORDS SUMMARY | 2025-04-29 01:53 | XMS_ITS | Encounter Summary ---
Author Organization [facility] Address [facility] [place] [address] Care Team Providers Care Pharmacy Student Name Role Phone Swati Bailey NP Primary Care Provider [phone] Encounter Details Date Type Department Care Team (Late st Contact Info) Description 12/25/2023 [employer] Message Enc [facility] Medical Group Multispecialty Care - [facility] [address], [address] [place] [address] [employer], [facility] Provider Sleep study Social History Tobacco Use [...] AM CDT 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 [address] [place] [address] documented as of this encounter Visit Diagnoses Not on filedocumented in this encounter Care Teams Pharmacy Student Relationship Specialty Start Date End Date Swati Bailey NP PCP - General Nurse Practitioner Family 10/19/23 documented as of this encounter
--- OUTSIDE RECORDS SUMMARY | 2025-04-29 01:53 | XMS_ITS | Encounter Summary ---
Author Organization [facility] Address Critical access hospital[address] [place] [address] Care Team Providers Care It Corporate Recruiter Name Role Phone Swati Bailey NP Primary Care Provider [phone] Encounter Details Date Type Department Care Team (Late st Contact Info) Description 12/20/2023 MyChart Message Enc [facility] Medical Group Multispecialty Care - [facility] 3 [facility], [address] [place] [phone] Elvia Morris NP 3 [facility] [address] [place], [place] [id number] Sleep study Social History Tobacco Use Types [...] AM CDT 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. [facility] [address] [place] [address] documented as of this encounter Visit Diagnoses Not on filedocumented in this encounter Care Teams It Corporate Recruiter Relationship Specialty Start Date End Date Swati Bailey NP PCP - General Nurse Practitioner Family 10/19/23 documented as of this encounter
--- OUTSIDE RECORDS SUMMARY | 2025-04-29 01:53 | XMS_ITS | Clinical Summary ---
Author Organization [facility] Address [address] [place] [address] Care Team Providers Care Corner Trimmer Operator Name Role Phone Swati Bailey NP Primary Care Provider [phone] Allergies Active Allergy Reactions Criticality Noted Date [...] 2 (two) times daily. 4 Active Ferrous Uahckcmho-U-Kiihc Acid (IRON-C OR) Take 1 tablet by [...] Department Care Team Description 04/07/2025 9:36 AM FINANCIAL SALES PROFESSIONAL Anesthesia Event [facility] [address] [place] [address] Adolfo Garcias MD 04/07/2025 9:30 AM FINANCIAL SALES PROFESSIONAL - 04/07/2025 10:49 AM FINANCIAL SALES PROFESSIONAL Surgery [facility] OR - OSC [address] [place] [address] Jyoti Guzman MD HYSTEROSCOPY DILATATION & CURETTAGE 04/07/2025 7:37 AM FINANCIAL SALES PROFESSIONAL - 04/07/2025 11:40 AM FINANCIAL SALES PROFESSIONAL Hospital Encounter [facility] [address] [place] [address] Jyoti Guzman MD Discharge Disposition: Home or Self Care (Routine Discharge) 03/31/2025 Travel 02/19/2025 8:52 AM CDT - 02/19/2025 11:59 PM CDT Hospital Encounter [facility] [address] [place] [address] Antonino Dodd MD Discharge Disposition: Home or Self Care (Routine Discharge) 02/18/2025 5:17 PM CDT - 02/18/2025 6:55 PM CDT Emergency [facility] [address] [place] [address] Antonino Dodd MD Vaginal Bleeding (/) Discharge [...] AM CDT Legal Sex Female 10:03 PM FINANCIAL SALES PROFESSIONAL Gender Identity Female 11/20/2023 7:57 AM CDT Sexual Orientation Straight 11/20/2023 7: 57 AM CDT 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 Not on file Not on [place] e Last Filed Vital Signs Vital Sign Reading Time Taken Comments Blood Pressure 128/82 04/07/2025 11:05 AM FINANCIAL SALES PROFESSIONAL Pulse 61 04/07/2025 11:10 AM FINANCIAL SALES PROFESSIONAL Temperature 36.1 C (97 F) 04/07/2025 10:32 AM FINANCIAL SALES PROFESSIONAL Respiratory Rate 18 04/07/2025 11:10 AM FINANCIAL SALES PROFESSIONAL Oxygen Saturation 93% 04/07/2025 11:10 AM FINANCIAL SALES PROFESSIONAL Inhaled Oxygen Concentration - - Weight 99 kg (218 lb 4.1 oz) 04/07/2025 8:11 AM FINANCIAL SALES PROFESSIONAL Height 155 cm (5' 1.02) 04/07/2025 8:11 AM FINANCIAL SALES PROFESSIONAL Body Mass Index 41.21 04/07/2025 8:11 AM FINANCIAL SALES PROFESSIONAL Plan of Treatment Upcoming Encounters Date Type Department Care Team (Late st Contact Info) Description 11/11/2025 9:30 AM CDT Office Visit Kianna Cardiovascular-O'Fallo n THREE [facility], [address] [place], [place] [phone] Alonso Machado MD Three [facility]. [address] [place] [address] Health Maintenance Due Date Last Done Comments [...] Influenza Adult (#1) 2025 02/03/2023 PHQ-2 (Physician [place]) Completed 11/11/2024 Hepatitis A Vaccines Aged Out [...] this topic Medical Devices Implanted Type Area Strawberry Grower Device Identifier Shelf Expiration Date Model / Serial / Lot Formerly [facility]-03/12 Implanted:02/13 by Marty Griffin MD (Quantity not on file) [facility] [id number] 10/12/2026 / / [id number] Explanted Type Area Strawberry Grower Device Identifier Shelf Expiration Date Model / Serial / Lot Implantable Loop [id number]-Gkg-Iv nq Ii-05/09/2024 Implanted:Qty: 1 on 05/09/2024 by Jaun Kitchen MD Explanted:Qty: 1 on 12/13/2024 by Jaun Kitchen MD Implantable Loop Recorder [employer] CARDIAC RHYTHM AND HEART FAILURE - DIV M 08/26/2025 [id number] / [id number] / Procedures Procedure Name Priority Date/Time Associated Diagnosis Comments HYSTEROSCOPY DILATATION & CURETTAGE 04/07/2025 9:21 AM FINANCIAL SALES PROFESSIONAL ABNORMAL UTERINE BLEEDING POCT URINE (BACK OFFICE) Routine 04/07/2025 PATHOLOGY Routine 04/07/2025 12:00 AM FINANCIAL SALES PROFESSIONAL US PELVIC NON OB COMP TA+TV Routine [...] office) (04/07/2025) URINE HCG TEST NEGATIVE NEGATIVE [facility] Internal Control: VALID VALID [facility] URINE URINE SPECIMEN OBTAINED BY CLEAN CATCH PROCEDURE / Unknown 04/07/2025 Adolfo Garcias MD POINT OF CARE TEST ORDERABLES Final Result [facility] [address] [place] [address], [id number] * Pathology (04/07/2025 12:00 AM FINANCIAL SALES PROFESSIONAL) PATHOLOGY [facility] Department of Laboratory Medicine [address] [place] [address] , extension [phone] Pathology Report Surgical Pathology Report Name: BONY GRIFFIN Specimen #: [id number] Age: 9 1975 (Age: 50) Location: [facility] Sex: F Procedure Date: 04/07/2025 Hospital #: [id number] Date Received: 04/07/2025 Date Reported: 04/08/2025 Provider: [...] interpretation, and sign out were performed at [facility], [address] [place] [address]. Electronically Signed Out YASMEEN VICENTE MD [facility] TISSUE ENDOMETRIAL STRUCTURE / Unknown 04/07/2025 10:09 AM FINANCIAL SALES PROFESSIONAL Tissue specimen (specimen) ENDOMETRIAL STRUCTURE / Unknown 04/07/2025 10:11 AM FINANCIAL SALES PROFESSIONAL Tissue specimen (specimen) ENDOMETRIAL STRUCTURE / Unknown 04/07/2025 10:12 AM FINANCIAL SALES PROFESSIONAL Jyoti Guzman MD PATHOLOGY/CYTOLOGY ORDERABLES Final Result Performing Organization Address City/State/[facility] Co de Phone Number [facility] [address] [place] [address], [phone] * US PELVIC NON OB COMP TA+TV [...] 3:49 PM Narrative 02/21/2025 3:53 PM CDT [address] [place] [address] Examination: Transabdominal and transvaginal pelvic ultrasound. Exam [...] Procedure Note Yang Higgins MD - 02/21/[address] [place] [address] Examination: Transabdominal and transvaginal pelvic ultrasound. Exam [...] - 12.5 SEC 02/18/2025 6:21 PM CDT [facility] INR 1.0 0.8 - 1.0 02/18/2025 6:21 PM CDT [facility] 02/18/2025 6:06 PM CDT us Antonino Dodd MD LABORATORY Final Result [facility] [address] [place] [address], * (ABNORMAL) COMPREHENSIVE METABOLIC PANEL (02/18/2025 6:06 PM CDT) SODIUM S/P/B 137 136 - 145 MMOL/L 02/18/2025 6:35 PM CDT [facility] POTASSIUM S/P/B 4.0 3.5 - 5.1 MMOL/L 02/18/2025 6:35 PM CDT [facility] CHLORIDE S/P/B 103 98 - 107 MMOL/L 02/18/2025 6:35 PM CDT [facility] CO2 28.0 21.0 - 32.0 MMOL/L 02/18/2025 6:35 PM CDT [facility] GLUCOSE 114(H) 70 - 99 MG/DL 02/18/2025 6:35 PM CDT [facility] Comment: FASTING GLUCOSE 100 TO 125 MG/DL IS CONSISTENT WITH IMPAIRED FASTING GLUCOSE. FASTING GLUCOSE >125 MG/DL IS CONSISTENT WITH DIABETES. RANDOM GLUCOSE >200 MG/DL WITH HYPERGLYCEMIC SYMPTOMS IS CONSISTENT WITH DIABETES. PER ADA GUIDELINES BUN 14 6 - 24 MG/DL 02/18/2025 6:35 PM CDT [facility] CREATININE S/P/B 0.74 0.55 - 1.02 MG/DL 02/18/2025 6:35 PM T [facility] CALCIUM S/P/B 9.3 8.4 - 10.5 MG/DL 02/18/2025 6:35 PM [facility] BILIRUBIN TOTAL S/P/B 0.9 0.2 - 1.0 MG/DL 02/18/2025 6:35 PM T [facility] Comment: THIS ASSAY IS NOT RECOMMENDED FOR PATIENTS UNDERGOING TREATMENT WITH ELTROMBOPAG DUE TO THE POTENTIAL FOR FALSELY ELEVATED RESULTS. ALKALINE PHOSPHATASE S/P/B 126(H) 41 - 108 U/L 02/18/2025 6:35 PM T [facility] AST 36 15 - 37 U/L 02/18/2025 6:35 PM [facility] ALT 42 14 - 59 U/L 02/18/2025 6:35 PM T [facility] TOTAL PROTEIN S/P/B 7.1 6.4 - 8.2 G/DL 02/18/2025 6:35 PM [facility] ALBUMIN S/P/B 3.7 3.4 - 5.0 G/DL 02/18/2025 6:35 PM [facility] ANION GAP 6.0 5.0 - 15.0 MMOL/L 02/18/2025 6:35 PM [facility] OSMOLALITY (CALC) 285 MOSM/KG 025 6:35 PM [facility] Comment:REFERENCE RANGE NOT ESTABLISHED GFR ESTIMATE >90 >89 ML/MIN/1. 73 M2 02/18/2025 6:35 PM T [facility] GFR NOTES GFR REFERENCE S: 02/18/2025 6:35 PM [facility] Comment: THE ESTIMATED GFR IS [...] MD LABORATORY Final Result Performing Organization Address City/[facility]/ZIP Co de Phone Number [facility] [address] [place] [address], [place] [phone] * HCG QUANT (SERUM)-CHORIONIC GONADOTROPIN (02/18/2025 6:06 PM CDT) HCG QUANTITATIVE <1 0.0 - 6.0 MIU/ML 02/18/2025 6:54 PM CDT [facility] Comment:NON- FEMALE 0-6 02/18/2025 6:06 PM CDT us Antonino Dodd MD LABORATORY Final Result Performing Organization Address City/[facility]/ZIP Co de Phone Number [facility] [address] [place] [address], [place] [phone] * (ABNORMAL) CBC W/DIFF AUTOMATED (02/18/2025 6:06 PM CDT) WBC 8.83 4.00 - 10.80 x10'3/uL 02/18/2025 6:19 PM CDT [facility] RBC 4.02(L) 4.10 - 5.40 x10'6/uL 02/18/2025 6:19 PM CDT [facility] HGB 13.4 12.0 - 16.0 G/DL 02/18/2025 6:19 PM CDT [facility] HCT 37.7 36.0 - 47.0 % 02/18/2025 6:19 PM CDT [facility] MCV 93.8 78.0 - 100.0 FL 02/18/2025 6:19 PM CDT [facility] MCH 33.3(H) 27.0 - 31.0 PG 02/18/2025 6:19 PM CDT [facility] MCHC 35.5 33.0 - 36.0 G/DL 02/18/2025 6:19 PM CDT [facility] RDW 13.0 11.5 - 14.5 % 02/18/2025 6:19 PM CDT [facility] PLT 352(H) 150 - 350 x10'3/uL 02/18/2025 6:19 PM CDT [facility] MPV 10.3 7.4 - 10.4 FL 02/18/2025 6:19 PM CDT [facility] CBC COMMENT NORMAL REFERENCE RANGE NOT ESTABLISHED FOR THE PROPORTIONAL LEUKOCYTE DIFFERENTIAL. 02/18/2025 6:19 PM CDT [facility] NEUTROPHILS % 80.7 % 02/18/2025 6:19 PM CDT [facility] LYMPHOCYTES % 12.3 % 02/18/2025 6:19 PM CDT [facility] MONOCYTES % 6.5 % 02/18/2025 6:19 PM CDT [facility] EOSINOPHILS % 0.1 % 02/18/2025 6:19 PM CDT [facility] BASOPHILS % 0.2 % 02/18/2025 6:19 PM CDT [facility] IMMATURE GRANS % 0.2 % 02/19/20 6:19 PM CDT [facility] NRBC % 0.0 % 02/18/2025 6:19 PM CDT [facility] ABS. NEUTROPHILS 7.12 1.60 - 8.30 x10'3/uL 02/18/2025 6:19 PM CDT [facility] ABS. LYMPHOCYTES 1.09 0.80 - 4.70 x10'3/uL 02/18/2025 6:19 PM CDT [facility] ABS. MONOCYTES 0.57 0.00 - 1.50 x10'3/uL 02/18/2025 6:19 PM CDT [facility] ABS. EOSINOPHILS 0.01 0.00 - 0.40 x10'3/uL 02/18/2025 6:19 PM CDT [facility] ABS. BASOPHILS 0.02 0.00 - 0.20 x10'3/uL 02/18/2025 6:19 PM CDT [facility] ABS. IMMATURE GRANULOCYTES 0.02 0.00 - 0.03 x10'3/uL 02/18/2025 6:19 PM CDT [facility] ABS. NUCLEATED RBC'S 0.00 0.00 - 0.01 x10'3/uL 02/18/2025 6:19 PM CDT [facility] 02/18/2025 6:06 PM CDT us Antoninodru Dodd MD LABORATORY Final Result [facility] [address] [place] [phone], from Last 3 Months Insurance [employer] Advance Directives * Full Code (Latest Code Status on File) Date Activated Date Inactivated Comments 03/12/2024 1:03 PM 03/12/2024 5:49 PM Care Teams Corner Trimmer Operator Relationship Specialty Start Date End Date Swati Bailey NP PCP - General Nurse Practitioner Family 10/19/23
--- OUTSIDE RECORDS SUMMARY | 2025-04-29 01:53 | XMS_ITS | Encounter Summary ---
Author Organization [facility] Address [facility] [place] [address] Care Team Providers Care Alterations Workroom Clerk Name Role Phone Swati Bailey NP Primary Care Provider Encounter Details Date Type Department Care Team (Late st Contact Info) Description 05/09/2024 Hospital Orders Only [facility] One [facility] [place], [place] [phone] Jaun Kitchen MD Three [facility]. 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 [facility] [address] [place] [address] documented as of this encounter Visit Diagnoses Not on filedocumented in this encounter Care Teams Alterations Workroom Clerk Relationship Specialty Start Date End Date Swati Bailey NP PCP - General Nurse Practitioner Family 10/19/23 documented as of this encounter
--- OUTSIDE RECORDS SUMMARY | 2025-04-29 01:53 | XMS_ITS | Clinical Summary ---
Author Organization [facility] Address [address] [place] [address] Phone Care Team Providers Care Design Cell Engineer Name Role Phone Provider, Not On File [...] st Contact Info) Description 05/05/2025 8:00 AM BANKING AND FINANCE INSTRUCTOR Office Visit [facility] [address] [place] [address] Tammy Mendoza, INSURANCE SERVICE REPRESENTATIVE, MOBILE DEVELOPER [address] [place] [address] Health Maintenance Due Date Last [...] patient's age to complete this topic Insurance [employer] Care Teams Design Cell Engineer Relationship Specialty Start Date End Date Provider, Not On File [place] PCP - General 11/27/23 Ina Gale MD [address] [place] [address] [address] [place] [address] Consulting Physician Oncology 08/16/24
[2025-04-29] MEDS: LACTATED RINGERS 1,000 ML 30 ML IV CONT ×2 (12:00→15:03)
[2025-04-29] MEDS: KETOROLAC 15 MG/ML VIAL (*BKC) IV PUSH (12:06)
[2025-04-29] MEDS: ACETAMINOPHEN 500 MG TABLET 1000 MG PO ×2 (12:06→18:30)
--- NOTE | 2025-04-29 12:17 | WPDANESEPPF ---
Anes - Initial Pre Proc Eval Procedure: Operation Date: 04/29/25 13:00 Proposed Procedures p Robotic Assisted Total Vaginal Hysterectomy with Bilateral Salpingo-oophorectomy - Nash Nolasco MD Date/Time: 04/29/25 12:17 Surgeon: Nash Nolasco MD Pre Op Diagnosis: Failed Ablation, Irg Bleed, Dyspareunia Patient Data Age: 50 Gender: F Height: 1.55 m Weight: 95.4 kg Last Vital Signs Temp 36.2 C L 04/29/25 12:03 Pulse 69 04/29/25 12:03 Resp 16 04/29/25 12:03 BP 125/82 04/29/25 12:03 Pulse Ox 100 04/29/25 12:03 O2 Del Method Room Air 04/29/25 12:03 Allergies Allergy/AdvReac Type Severity Reaction Status Date / Time Penicillins Allergy Intermediate Hives Verified 04/29/25 12:01 Home Medications ?Medication ?Instructions ?Recorded ?Confirmed ?Type aspirin 81 mg tablet,delayed 81 mg PO DAILY 04/25/25 04/29/25 History release (Adult Low Dose Aspirin) atorvastatin 80 mg tablet 80 mg PO QPM 04/25/25 04/29/25 History cetirizine 10 mg tablet (24Hour 10 mg PO DAILY 04/25/25 04/29/25 History Allergy) docusate sodium 100 mg capsule 100 mg PO BID 04/25/25 04/29/25 History (Colace) iron,carbonyl 65 mg-vitamin C 125 1 tablet PO DAILY 04/25/25 04/29/25 History mg tablet multivitamin (Daily Multi-Vitamin 1 tablet PO DAILY 04/25/25 04/29/25 History tablet) ondansetron HCl 4 mg tablet 4 mg PO Q8H PRN nausea and vomiting 04/25/25 04/25/25 History hydrocodone 5 mg-acetaminophen 325 1 tablet PO Q4H PRN pain #20 tabs 04/29/25 Rx mg tablet Laboratory Tests 04/29/25 11:45 Blood Type Pending Antibody Screen Pending Patient hx anesthesia problems: none Family hx anesthesia problems: none Results Review: All pre-operative results and documents have been reviewed as part of the pre-operative evaluation. [facility] Past Medical History Medical History (Updated 04/29/25 @ 12:18 by Nash Montoya MD) Obesity History of CVA (cerebrovascular accident) Surgical History Surgical History History of gastric surgery H/O laparoscopy History of surgical closure of patent foramen ovale (PFO) Social History Social History Smoking packs per day: 1 Smoking cigarettes per day: 20.0 Years smoked: 15 Smoking pack-years: 15.00 Smoking status: Former smoker Tobacco type: cigarettes Second hand tobacco smoke exposure: No Smoking end date: 05/15/01 Alcohol intake: never Substance use: never Substance use type: does not use Living arrangements: with family Spiritual care concerns: No Anes - Eval Final PreProcedure Day of Procedure 04/29/25 12:17 Patient weight: morbidly obese Heart: regular rate and rhythm Lungs: clear to auscultation Airway: Mallampati scale class II Neurological: alert and oriented Last oral intake: >/= 8 hours ASA classification: III Emergent: no Anesthetic plan: proceed Anesthesia type and monitoring: general ETT and standard monitoring Results Review: All pre-operative results and documents have been reviewed as part of the pre-operative evaluation. Informed Consent: The patient's anesthetic plan and its attendant risks and benefits were discussed with the patient/family/POA. Questions were solicited and answers provided to the satisfaction of the patient/family/POA.
[2025-04-29] MEDS: SCOPOLAMINE 1 MG PATCH 1 PATCH TRANSDERM (12:45)
[2025-04-29] MEDS: ceFAZolin 2 GM in SODIUM CHLORIDE 0.9% IV 50 ML 100 ML IVPB (13:07)
--- NOTE | 2025-04-29 14:07 | S_PTH ---
PATIENT: Vaishali Beal [id number] AGE/SX: 50/F ROOM: RE04/29/[address]: Nash Nolasco MD : 1975 BED: DIS: 04/30/2025 SPEC #: [id number] RECD: 04/30/25 07:40 STATUS: DENY REQ #: [id number] DEVI: 04/29/25 14:[address]: Nash Padilla DEPT: [facility] Surgical RECD BY: Caty Sullivan Tissues: A - Uterus Procedures: Hematoxylin and Eosin Stain Gross and Microscopic Level 5
--- NOTE | 2025-04-29 14:14 | P.OP_ITS ---
Procedure Note - Detailed Date of Procedure 04/29/25 Pre-op Diagnosis Failed Ablation, Irg Bleed, Dyspareunia Post-op Diagnosis Same Procedure Performed Robotic total vaginal hysterectomy and bilateral salpingo-oophorectomy Surgeon Nash Nolasco MD Anesthesia General Indications 50-year-old female with excessive heavy bleeding and a failed ablation Findings Markedly enlarged uterus. Tubes status post tubal ligation. Large benign appearing left ovarian cyst Description of Procedure Patient was prepped draped in sterile fashion placed in dorsal lithotomy position. Under excellent general endotracheal anesthesia weighted speculum placed in posterior fornix anterior lip of the cervix grasped with single-tooth tenaculum uterus sounded to 11cm. Serial dilatation with fragmented dilators performed followed passes the 10. LUCIAN and the 3. 0.5 cold cup. Next the 16 Iraqi catheter was placed. The weighted speculum single-tooth removed and the gloves were changed. A supraumbilical incision made the Veress needle passed in the abdomen. Abdomen filled with CO2 gas [id number]. The 8mm trocar advanced in the abdomen. Downside visualized no injury seen. Patient placed in Trendelenburg 18? and right left lateral quadrant incisions made. 8mm probe trocars advanced under direct visualization assuring no injury. A right upper quadrant incision made the 8mm trocar advanced under direct visualization again assuring no injury. The robot was docked. Attention was turned to the investment counselor. The left round ligament grasped, burned, cut. Anteriorly a bladder flap was formed by sharply dissecting the peritoneum and bringing this to the opposite round ligament reflecting the bladder caudally delivery round ligament was found clamped, burned, cut. Next the left infundibulopelvic structure was skeletonized remove the left ovary and remainder of the tube was clamped, burned, cut and serially brought to the level of previously cut round ligament. In similar fashion on the right the infundibul opelvic structure was skeletonized to remove the right ovary and tube this was clamped, burned, cut brought to level of previously cut. Next cardinal broad ligaments on the left were serially skeletonized clamping burning cutting hugging the cervix uterus until the large tortuous uterine vessels could be seen on the left these were individually clamped, burned, cut. In similar fashion on the right the cardinal broad ligaments were serially skeletonized clamping burning cutting and hugging the cervix uterus until the uterine vessels could be seen on the right these were individually clamped, burned, cut. Excellent blanching of the uterus was noted and the colpotomy incision made cervix uterus ovaries and remainder of tubes removed through the vagina. The vagina then closed continuous running 0V lock from lateral edge to lateral edge back to midline. Irrigation undertaken until clear hemostasis was assured blood loss estimated [id number]. [place] term was placed over the raw surface area the robot was undocked. The gas removed from the abdomen. The trocars removed from the abdomen. The incisions closed with 4-0 Monocryl and glue. The patient was awakened went recovery in satisfactory condition. All sponge, needle, instrument counts were correct. There were no immediate complications Estimated Blood Loss 25 Drains No Packing No Pathology Yes Complications No immediate complications Condition Stable Disposition PACU
--- NOTE | 2025-04-29 14:18 | P.DS_ITS ---
DS: Admitting Diagnosis Discharge Date 04/30/2025 Admitting Diagnosis Excessive bleeding/pelvic pain/dyspareunia DS: Discharge Diagnosis Discharge Diagnosis (1) Excessive bleeding: Code(s): R58 - Hemorrhage, not elsewhere classified Status: Acute (2) Pelvic pain: Code(s): R10.20 - Pelvic and perineal pain unspecified side Status: Acute (3) Dyspareunia: Status: Acute DS: Summary Hospital Course Reason for hospitalization: Patient was admitted on 04/29 25 for robotic hysterectomy bilateral salpingo- oophorectomy Hospital Course: Patient's hospital course unremarkable. She remained afebrile. She was up, voiding without difficulty, eating regular diet, ambulating, and generally without complaints. Time Spent with Patient Time attestation: Total time spent providing and/or coordinating discharge services: Exam Const: General: cooperative, healthy appearing and comfortable Nutritional Appearance: obese Orientation/consciousness: oriented to person, oriented to place and oriented to time HENMT: Head: normal to inspection Resp: Effort & Inspection: normal respiratory effort Cardio: Rate: regular rate Rhythm: regular rhythm Heart sounds: S1 normal heart sound present and S2 normal heart sound present GI: Inspection: normal to inspection and incision (Wounds are clean dry intact) DS: Data Data Completed and Pending Pending studies at discharge: Pending at discharge 04/29/25 14:07 Surgical [PTH] Routine Labs on day of discharge: Labs from last 24 hours 04/29/25 11:45 Blood Type O Positive Antibody Screen Negative Discharge Plan Discharge Patient Disposition: Home Patient Language: Surinamese Stand Alone Forms: General Discharge Instructions Follow-up/Referrals: Nash Padilla MD [Physician, [employer]] Discharge Medications: New hydrocodone-acetaminophen 5-325 mg tablet 1 tablet PO Q4H PRN (Reason: pain) Qty: 20 0RF No Action atorvastatin 80 mg tablet 80 mg PO QPM ondansetron HCl 4 mg tablet 4 mg PO Q8H PRN (Reason: nausea and vomiting) docusate sodium [Colace] 100 mg capsule 100 mg PO BID cetirizine [24Hour Allergy] 10 mg tablet 10 mg PO DAILY multivitamin [Daily Multi-Vitamin] Tablet 1 tablet PO DAILY iron,carbonyl-vitamin C 65 mg iron- 125 mg tablet 1 tablet PO DAILY aspirin [Adult Low Dose Aspirin] 81 mg tablet,delayed release (DR/EC) 81 mg PO DAILY
[2025-04-29] MEDS: DEXTROSE 5%/LACTATED RINGERS 1,000 ML 125 ML IV CONT (16:31)
--- NOTE | 2025-04-29 17:06 | PC.NURSE ---
This patient, Vaishali Beal, was received from PACU on 04/29/25 at 1345. Patient/family oriented to unit policies and routines
[2025-04-29] MEDS: DOCUSATE SODIUM 100 MG CAPSULE PO (18:30)
[2025-04-29] MEDS: SIMETHICONE 80 MG TAB.CHEW PO (18:30)
[2025-04-29] MEDS: KETOROLAC 30 MG/ML VIAL (*BKC) IV PUSH (18:30)
[2025-04-30] MEDS: ACETAMINOPHEN 500 MG TABLET 1000 MG PO ×2 (00:45→07:29)
[2025-04-30] MEDS: KETOROLAC 30 MG/ML VIAL (*BKC) IV PUSH ×2 (00:45→07:25)
[2025-04-30 04:00] VITALS: BP 101/57; PULSE 68; RESP 16; TEMP 36.6; O2SAT 97
[2025-04-30 05:21] LABS: Hematocrit 36.6 % (37.0-47.0); Hemoglobin 12.6 g/dL (12.0-15.0); Immature Granulocyte Percent A 0.4 % (0-0.5); Lymphocytes Absolute Auto 0.60 K/mm3 (0.9-3.2); Mean Corpuscular HGB Conc 34.4 g/dl (32-36); Mean Corpuscular Hemoglobin 33.0 pg (26-34); Mean Corpuscular Volume 95.8 fl (80-100); Nucleated Red Blood Cells Absolute Auto 0.000 K/mm3 (0.0-0.012); Nucleated Red Blood Cells Perc 0.0 % (0.0-0.2); Platelet Count Result 279 k/mm3 (150-375); Red Blood Count 3.82 M/mm3 (4.2-5.4); White Blood Count 7.6 K/mm3 (4.5-10.0)
--- NOTE | 2025-04-30 07:00 | P.PNOB_ITS ---
[employer] - A/P Assessment and plan (1) Excessive bleeding: Code(s): R58 - Hemorrhage, not elsewhere classified Status: Acute (2) Pelvic pain: Code(s): R10.20 - Pelvic and perineal pain unspecified side Status: Acute (3) Dyspareunia: Status: Acute Plan home, follow up 2-3 weeks Postoperative Procedures: Procedures Operation Date: 04/29/25 13:00 Actual Procedure Side Surgeon p Robotic Assisted Total Vaginal Hysterectomy with Bilateral Salpingo- oophorectomy Bilateral Nash Nolasco MD Time Spent With Patient Time: Total time spent is greater than 50% in coordination of care (as documented) at patient's floor/unit and/or counseling patient: Time with patient: 15 - 25 minutes [employer]- PN:Subj Post-Op Subjective Date/time seen: 04/30/25 07:00 Subjective: patient reports feeling better, patient has no complaints, patient desires discharge, pain is well controlled and patient is tolerating oral intake Exam 2 Const: General: cooperative, healthy appearing and comfortable Nutritional Appearance: obese Orientation/consciousness: oriented to person, oriented to place and oriented to time HENMT: Head: normal to inspection Resp: Effort & Inspection: normal respiratory effort Cardio: Rate: regular rate Rhythm: regular rhythm Heart sounds: S1 normal heart sound present and S2 normal heart sound present GI: Inspection: normal to inspection and incision (Wounds are clean dry intact) [employer] - PN: Obj Data Vital Signs Vital Signs: Vital Signs - 24 hr 04/29/25 12:03 04/29/25 14:28 04/29/25 14:30 Temperature 97.1 F L 96.9 F L Pulse Rate 69 81 61 Respiratory Rate 16 15 14 Blood Pressure 125/82 137/69 132/83 Pulse Oximetry 100 100 100 Oxygen Delivery Room Air Simple Face Mask Simple Face Mask Oxygen Flow Rate 8 8 04/29/25 14:45 04/29/25 15:00 04/29/25 15:15 Temperature Pulse Rate 60 61 60 Respiratory Rate 14 15 14 Blood Pressure 133/72 133/69 125/70 Pulse Oximetry 100 97 96 Oxygen Delivery Simple Face Mask Room Air Room Air Oxygen Flow Rate 8 04/29/25 15:30 04/29/25 15:45 04/29/25 19:46 Temperature 97.1 F L 97.7 F 98.6 F Pulse Rate 63 64 70 Respiratory Rate 16 16 18 Blood Pressure 123/70 119/71 127/73 Pulse Oximetry 97 95 97 Oxygen Delivery Room Air Oxygen Flow Rate 04/29/25 21:00 04/30/25 04:00 04/30/25 04:00 Temperature 97.8 F Pulse Rate 68 68 Respiratory Rate 16 16 Blood Pressure 101/57 L Pulse Oximetry 97 97 Oxygen Delivery Room Air Room Air Oxygen Flow Rate Intake/Output Intake/Output: Intake & Output 04/27/25 04/28/25 04/29/25 04/30/25 23:59 23:59 23:59 23:59 Intake Total 450 Output Total 1020 500 Balance -570 -500 Meds/Results Medications: Active Medications Generic Name Dose Route Start Last Admin Trade Name Freq PRN Reason Stop Dose Admin Acetaminophen 1,000 mg 04/29/25 18:00 04/30/25 00:45 Acetaminophen 500 Mg Tablet PO 1,000 mg Q6HR JEANNINE Administration Docusate Sodium 100 mg 04/29/25 17:00 04/29/25 18:30 Docusate Sodium 100 Mg Capsule PO 100 mg BID JEANNINE Administration Enoxaparin Sodium 40 mg 04/30/25 09:00 Enoxaparin 40 Mg/0.4 Ml Syringe SUB-Q DAILY JEANNINE Dextrose/Lactated Ringer's 1,000 mls @ 125 mls/hr 04/29/25 15:39 04/30/25 00:48 Dextrose 5%/Lactated Ringers IV CONT Not Given .Q8H JEANNINE Ibuprofen 600 mg 04/30/25 12:00 Ibuprofen 600 Mg Tablet PO Q6HR [facility] Naloxone HCl 0.1 mg 04/29/25 15:39 Naloxone Hcl 0.4 Mg/Ml Vial IV PUSH Q2M PRN Respiratory rate less than 10 Ondansetron HCl 4 mg 04/29/25 15:39 Ondansetron Inj 4 Mg/2 Ml Vial IV PUSH Q6H PRN Nausea And Vomiting Oxycodone HCl 5 mg 04/29/25 15:39 Oxycodone Hcl (*Crx) 5 Mg Tab Ir PO Q4H PRN Pain Rated 4-6 Oxycodone HCl 10 mg 04/29/25 15:39 Oxycodone Hcl (*Crx) 5 Mg Tab Ir PO Q6H PRN Pain Rated 7-10 Simethicone 80 mg 04/29/25 17:00 04/29/25 18:30 Simethicone 80 Mg Tab.Chew PO 80 mg TIDWM JEANNINE Administration Labs 04/30/25 03:35 Labs: Laboratory Results - last 24 hr 04/29/25 04/30/25 11:45 03:35 WBC 7.6 RBC 3.82 L Hgb 12.6 Hct 36.6 L MCV 95.8 MCH 33.0 MCHC 34.4 RDW 12.5 Plt Count 279 MPV 10.7 H Immature Gran % (Auto) 0.4 Neut % (Auto) 84.5 H Lymph % (Auto) 7.9 L [place] % (Auto) 5.3 Eos % (Auto) 1.6 Baso % (Auto) 0.3 Lymph # (Auto) 0.60 L [place] # (Auto) 0.4 Eos # (Auto) 0.1 Baso # (Auto) 0.0 Abs Immat Gran (auto) 0.03 Absolute Neuts (auto) 6.4 Absolute Nucleated RBC 0.000 Nucleated RBC % 0.0 Blood Type O Positive Antibody Screen Negative
[2025-04-30] MEDS: ENOXAPARIN 40 MG/0.4 ML SYRINGE SUB-Q (07:24)
[2025-04-30] MEDS: SIMETHICONE 80 MG TAB.CHEW PO (07:29)
[2025-04-30] MEDS: DOCUSATE SODIUM 100 MG CAPSULE PO (07:29)
[2025-04-30 08:10] VITALS: BP 95/50; PULSE 70; RESP 16; TEMP 36.9; O2SAT 96
== END 2025-04-30 08:35 | disposition home or self-care (01) ==
LOC: ANHSURGERY 11:00 → ANHOB2 15:43
PROVIDERS: Visit Provider Obstetrics & Gynecology
PROC: (CPT 58552; principal; 2025-04-29 13:00)
DX: N72 Inflammatory disease of cervix uteri (principal); N80.03 Adenomyosis of the uterus; N83.8 Other noninflammatory disorders of ovary, fallopian tube and broad ligament; N70.11 Chronic salpingitis; N83.11 Corpus luteum cyst of right ovary; E66.01 Morbid (severe) obesity due to excess calories; Z68.39 Body mass index [BMI] 39.0-39.9, adult; Z79.85 Long-term (current) use of injectable non-insulin antidiabetic drugs; Z79.891 Long term (current) use of opiate analgesic; Z98.890 Other specified postprocedural states; Z98.84 Bariatric surgery status; Z87.891 Personal history of nicotine dependence; Z86.79 Personal history of other diseases of the circulatory system
CPT/HCPCS: 58552; S2900; 36415; 85025; 86850; 86900; 86901; 88307; 99199; J0690; A9270; J1100; J1650; J1885; J2250; J2405; J2704; J3010; J7030; J7120; J7121